=== PATIENT | female | born 1945 | race Caucasian/White ===

== ENCOUNTER 2023-12-19 13:09 | Emergency (ER) | payer OTHER, SELFPAY ==
[2023-12-19 13:19] VITALS: BP 168/86
[2023-12-19 13:35] LABS: % Basophils 1.3 % (0-2); % Eosinophils 2.5 % (0-6); % Immature Granulocytes 0.6 % (0-0.5); % Lymphocytes 21.7 % (20.5-51.1); % Monocytes 10.2 % (1.7-9.3); % Neutrophils 63.7 % (42.2-75.2); Absolute Basophils 0.1 10^3/uL (0-0.2); Absolute Eosinophils 0.2 10^3/uL (0-0.7); Absolute Lymphocytes 1.5 10^3/uL (1.2-3.4); Absolute Monocytes 0.7 10^3/uL (0.1-0.6); Absolute Neutrophils 4.3 10^3/uL (1.4-6.5); Hematocrit 39.5 % (37.0-47.0); Hemoglobin 13.5 g/dL (12.0-16.0); Mean Corp Hgb Conc. 34.2 g/dL (33.0-37.0); Mean Corpuscular Hgb 31.4 pg (27.0-31.0); Mean Corpuscular Volume 91.9 fL (81.0-99.0); Mean Platelet Volume 8.6 fL (7.4-10.4); Nucleated Red Blood Cells % 0 %; Platelet Count 251 10^3/uL (130-400); Red Cell Dist. Width 12.6 % (11.5-14.5); White Blood Cell Count 6.7 10^3/uL (4.8-10.8)
[2023-12-19 13:49] LABS: ALT (SGPT) 15 U/L (0-35); AST (SGOT) 23 U/L (14-36); Albumin 4.3 g/dl (3.5-5.0); Alkaline Phosphatase 77 U/L (38-126); Blood Urea Nitrogen 23 mg/dl (7-17); Calcium 8.9 mg/dl (8.4-10.2); Carbon Dioxide 26 mmol/L (22-30); Chloride 106 mmol/L (98-107); Glucose 98 mg/dl (70-99); Potassium 3.9 mmol/L (3.5-5.1); Sodium 137 mmol/L (135-145); Total Bilirubin 0.7 mg/dl (0.2-1.3); Total Protein 6.9 g/dl (6.3-8.2)
[2023-12-19 14:09] LABS: eGFR 46.33
--- NOTE | 2023-12-19 16:45 | ED.GENMED ---
History of Present Illness
General
Chief Complaint: Bowel Problem
Source: patient
Exam Limitations: none
Time Seen by Provider: 12/19/23 16:45
Nursing documentation reviewed up to this point in time: agreed with
Travel History
Have you had any contact with someone who has COVID-19?: No
Do you have any symptoms of coronavirus? Fever > 100 degrees, chills, cough, shortness of breath, sore throat, loss of taste or smell, muscle aches, or headache?: No
History of Present Illness
History of Present Illness:
78-year-old female with chronic pain syndrome presents complaining of abdominal pain and constipation. Pain is 'uncomfortable,' in lower mid abdomen, not severe. Has chronic low back pain and takes tramadol 50 mg 2-3 times a day, on a bowel regimen
for constipation: Lactulose 30 daily, took BID past 3 days. Docusate sodium BID and Miralax daily. She thinks she had a BM yesterday and today.
Past History
Past History
ED Past Medical History: Asthma, COPD, Renal failure (CKD) and Other
ED Past Surgical History: None
Social History
Tobacco: Smoker
Alcohol: None
Drug: None
Personal: Single
Living: alone
Family History
Family History: Other (Nonsignificant)
Review of Systems
Review of Systems
Allergies reviewed?: Yes
All Other Systems: ROS reviewed and negative except as documented in HPI and ROS
Constitutional: Denies fever
Respiratory: Denies trouble breathing
Cardiac: Denies chest pain
ABD/GI: Reports abdominal pain, nausea and constipated; Denies vomiting, diarrhea, bloody stools or black stools
: Denies dysuria, frequency, difficulty voiding or urgency
Musculoskeletal: Reports back pain (chronic); Denies edema
Skin: Reports no symptoms
Neurological: Reports no symptoms
Phy Exam
Physical Exam
Physical Exam:
GENERAL: No acute distress. A&Ox3. Frail, cachectic
CONSTITUTIONAL: Afebrile.
EYES: clear, conjunctivae normal
ENMT: moist mucus membranes, Pharynx nl
RESPIRATORY: Regular respirations, nonlabored, lungs clear.
CARDIOVASCULAR: Regular rate and rhythm, no murmurs, no rubs.
GI: Soft, nondistended, no palpable masses, mild suprapubic tenderness, normal BS
Rectal: No stool in rectal vault.
MUSCULOSKELETAL: Moves with ease. Well perfused.
SKIN: Warm, dry, pink
PSYCH: Normal mood and affect. Well kept, interactive and appropriate
NEUROLOGIC: Awake, alert and oriented. No focal neurological deficits
Course
Orders/Labs/Results
Orders:
Orders
12/19/23 13:30
Complete Blood Count/With Diff Urgent
Comprehensive Metabolic Panel Urgent
12/19/23 17:12
CT Abd/pel W Iv And Oral Contr Urgent
Comment:
Reason For Exam: no BM for 5 days, lower abd pain
Iohexol [Omnipaque] See Protocol PO NOW STA
12/19/23 17:13
0.9% Sodium Chloride 1000 ml [Nss] 1,000 ml IV BOLUS
12/19/23 21:10
Ciprofloxacin HCl [Cipro] 500 mg PO NOW STA
12/19/23 21:15
MetroNIDAZOLE [Flagyl] 500 mg PO NOW STA
Abnormal Lab Results
12/19/23
13:30
MCH 31.4 H pg
(27.0-31.0)
Absolute Monos (auto) 0.7 H 10^3/uL
(0.1-0.6)
Immature Gran % 0.6 H %
(0-0.5)
Monocytes % 10.2 H %
(1.7-9.3)
BUN 23 H mg/dl
(7-17)
Creatinine 1.2 H mg/dL
(0.6-1.0)
12/19/23 13:30
12/19/23 13:30
Vital Signs
Initial and Last Documented VS:
Initial Vital Signs
Temp Pulse Resp BP Pulse Ox
98.1 F 66 16 168/86 98
12/19/23 13:19 12/19/23 13:19 12/19/23 13:19 12/19/23 13:19 12/19/23 13:19
Last Documented Vital Signs
Temp Pulse Resp BP Pulse Ox
98.1 F 66 16 147/79 100
12/19/23 13:19 12/19/23 13:19 12/19/23 13:19 12/19/23 20:32 12/19/23 20:33
MDM/Problems Addressed
Differential Diagnosis Includes:
constipation, bowel obstruction
MDM/Problems Addressed:
78-year-old female with chronic pain syndrome presents complaining of abdominal pain and constipation. Pain is 'uncomfortable,' in lower mid abdomen, not severe. Has chronic low back pain and takes tramadol 50 mg 2-3 times a day, on a bowel regimen
for constipation: Lactulose 30 daily, took BID past 3 days. Docusate sodium BID and Miralax daily. She thinks she had a BM yesterday and today.
Afebrile, NAD
Abd soft minimally tender suprapubic area. Normal BS. Non distended
12/19/2023 1718 PM
CBC unremarkable
CMP: BUN/creat 13/12.2 she has been here in the past, Daughter April states pt has had out pt labs showing worsening kidney functions and has an appointment with Nephrology in January
12/19/2023 2109 PM
CAT scan abdomen pelvis with p.o. and IV contrast radiology for read: IMPRESSION:
1. Mild wall thickening of the sigmoid colon, which could be secondary to chronic wall hypertrophy from extensive diverticulosis or a mild infectious/inflammatory colitis.
2. Moderate colonic stool burden.
Will treat mild colitis
Prescription for Cipro and Flagyl sent to her pharmacy
Referred to GI for follow-up
Spoke with daughter April who will be here to tack picker patient, she will tack picker her antibiotics tomorrow and she will make arrangements for her to follow-up with her GI doctor at [place].
*Critical Care Note
Total Time (30-74mins, 75-104mins- exclusive of procedures): Not Applicable
ED Attending Note
-
Portions of this chart may have been created with voice recognition software.� Occasional wrong word or��sound alike� substitutions may have occurred due to the inherent limitations of voice recognition software.
Discharge Plan
Departure
Patient Disposition: Home (Routine Discharge)
Date of Disposition: 12/19/23
Time of Disposition: 21:15
Patient with high blood pressure during this ER visit?: No
Condition: Good
Discharge Problem:
Colitis
Instructions: Colitis
Prescriptions:
New
ciprofloxacin HCl [Cipro] 500 mg tablet
500 mg PO BID Qty: 14 0RF
metronidazole 500 mg tablet
500 mg PO TID Qty: 21 0RF
No Action
albuterol sulfate [Proventil HFA] 90 MCG/PUFF HFA aerosol inhaler
2 puff inhalation Q4HPRN PRN (Reason: Wheezing/cough) Qty: 1 0RF
tramadol 50 MG tablet
50 mg PO Q6HPRN PRN (Reason: pain) Qty: 12 0RF
Rx Instructions:
Last filled 02/03/23 #60 x15 day supply
docusate sodium 100 mg Capsule
100 mg PO BID Qty: 0 0RF
polyethylene glycol 3350 [HealthyLax] 17 gram Powder In Packet
17 g PO DAILY Qty: 0 0RF
sennosides [senna] 8.6 mg Tablet
17.2 mg PO HS Qty: 0 0RF
pantoprazole 40 mg Tablet,Delayed Release (Dr/Ec)
40 mg PO DAILY Qty: 30 0RF
desvenlafaxine succinate [Pristiq] 25 mg tablet extended release 24 hr
25 mg PO DAILY Qty: 1 0RF
Referrals:
Your, GI doctor [Other] - Next open appointment
Aleah Greco, [Family Provider] -
Activity Restrictions/Additional Instructions:
As we discussed, you have an inflammation in part of your bowel called colitis.
I sent a prescription to your pharmacy for Cipro and Flagyl antibiotics to start tomorrow as you were given a dose here today
Call your GI doctors office tomorrow, inform them of your diagnosis and ask when they want to see you for follow-up.
Interventions
Interventions:
*Risk Screen - Suicide Last Done: 12/19/23 17:53
*General Assessment Last Done: 12/19/23 17:53
*Neglect/Abuse Screening Last Done: 12/19/23 17:53
ED- Fall Risk Assessment Last Done: 12/19/23 17:53
*ED COVID-19 Vaccine History Last Done: 12/19/23 13:19
*Nursing Disposition Last Done: 12/19/23 21:44
HF-Olwile-Mcaompzikl Assessment Last Done: 12/19/23 17:53
Discharge Date and Time
Discharge Date/Time: 12/19/23 21:49
[2023-12-19 17:53] VITALS: BMI 17.6
[2023-12-19 17:58] VITALS: BP 126/66
[2023-12-19 18:00] VITALS: BP 121/65
[2023-12-19] MEDS: OMNIPAQUE 50 ML PO (18:06)
[2023-12-19] MEDS: NSS 1000 IV (18:06)
[2023-12-19 19:22] VITALS: BP 158/83
[2023-12-19 20:32] VITALS: BP 147/79
[2023-12-19] MEDS: FLAGYL 500 MG PO (21:40)
[2023-12-19] MEDS: CIPRO 500 MG PO (21:40)
== END 2023-12-19 21:49 | disposition home or self-care (01) ==
LOC: EMR 13:09
PROVIDERS: Student in an Organized Health Care Education/Training Program; EMERGENCY PHYSICIAN Emergency Medicine; FAMILY PHYSICIAN Family Medicine
DX: K52.9 Noninfective gastroenteritis and colitis, unspecified (principal); K59.00 Constipation, unspecified; J44.89 Other specified chronic obstructive pulmonary disease; N18.9 Chronic kidney disease, unspecified; F17.200 Nicotine dependence, unspecified, uncomplicated
CPT/HCPCS: 99284; 96360; 74177; 80053; 85025; Q9967

== ENCOUNTER 2024-10-14 01:13 | Observation (INO) | payer OTHER, SELFPAY ==
[2024-10-13 20:33] VITALS: BMI 17.1
[2024-10-13 20:34] VITALS: BP 150/74
[2024-10-13 20:40] VITALS: BP 150/74
[2024-10-13 21:00] VITALS: BP 130/72
[2024-10-13 21:01] LABS: % Basophils 0.7 % (0-2); % Eosinophils 0.6 % (0-6); % Lymphocytes 10.3 % (20.5-51.1); % Monocytes 10.1 % (1.7-9.3); % Neutrophils 77.3 % (42.2-75.2); Absolute Basophils 0.1 10^3/uL (0-0.2); Absolute Eosinophils 0.1 10^3/uL (0-0.7); Absolute Immature Granulocytes 0.1 10^3/uL (0-0.05); Absolute Neutrophils 7.8 10^3/uL (1.4-6.5); Hematocrit 36.9 % (37.0-47.0); Hemoglobin 11.9 g/dL (12.0-16.0); Mean Corp Hgb Conc. 32.2 g/dL (33.0-37.0); Mean Corpuscular Hgb 29.5 pg (27.0-31.0); Mean Corpuscular Volume 91.6 fL (81.0-99.0); Mean Platelet Volume 8.5 fL (7.4-10.4); Nucleated Red Blood Cells % 0 %; Platelet Count 268 10^3/uL (130-400); Red Blood Cell Count 4.03 10^6/uL (4.20-5.40); Red Cell Dist. Width 12.2 % (11.5-14.5); White Blood Cell Count 10.1 10^3/uL (4.8-10.8)
[2024-10-13 21:18] LABS: COVID-19 Antigen Negative (Negative)
[2024-10-13 21:22] LABS: ALT (SGPT) 11 U/L (0-35); AST (SGOT) 18 U/L (14-36); Albumin 3.8 g/dl (3.5-5.0); Alkaline Phosphatase 85 U/L (38-126); Blood Urea Nitrogen 27 mg/dl (7-17); Calcium 8.8 mg/dl (8.4-10.2); Carbon Dioxide 26 mmol/L (22-30); Chloride 102 mmol/L (98-107); Estimated Creatinine Clearance 20 ml/min; Glucose 118 mg/dl (70-99); Sodium 137 mmol/L (135-145); Total Bilirubin 0.6 mg/dl (0.2-1.3); Total Protein 6.2 g/dl (6.3-8.2); eGFR 38.27
[2024-10-13 21:28] LABS: Troponin I 0.013 ng/ml
--- NOTE | 2024-10-13 21:55 | ED.GENMED ---
History of Present Illness
General
Chief Complaint: Chest Pain
Source: patient
Exam Limitations: none
Time Seen by Provider: 10/13/24 21:22
History of Present Illness
History of Present Illness:
This is a 79 year old female that comes in with c/o chest pain and SOB. States that she has not felt good for about a week. States that she felt strange tonight when she got in bed as the muscle around the heart hurt. State that she has pain with
breathing and she feels flu like. States that she has had a fever, chest pain, SOB, nausea. Denies any chills, abd pain, vomiting, diarrhea, headache, dizziness, urinary burning.
Past History
Past History
ED Past Medical History: Asthma, COPD, Renal failure (CKD) and Other (Chronic neck and back pain, Diverticulitis, )
ED Past Surgical History: Other (cervical cyst removed)
Social History
Tobacco: Smoker
Alcohol: None
Drug: None
Personal:
Living: alone
Family History
Family History: Other (Nonsignificant)
Review of Systems
Review of Systems
All Other Systems: ROS reviewed and negative except as documented in HPI and ROS
Constitutional: Reports fever; Denies chills
EENT: Reports no symptoms
Respiratory: Reports trouble breathing; Denies cough
Cardiac: Reports chest pain
ABD/GI: Reports nausea; Denies abdominal pain, vomiting or diarrhea
: Reports no symptoms; Denies dysuria, frequency or urgency
Musculoskeletal: Reports no symptoms
Skin: Reports no symptoms
Neurological: Reports no symptoms; Denies dizzy or headache
Psychiatric: Reports no symptoms
Phy Exam
General Physical Exam
General Presentation: no apparent distress
General age: appears stated age
General Skin: warm and dry
General Habitus: elderly
General Mental: alert
General Hydration: dry mucous membranes
ENT Exam
ENT Exam: TM's normal, pharynx normal and neck supple
Eye Exam
Eye Exam: EOMI
Cardiovascular Exam
Cardiovascular Exam: regular rate/rhythm, no edema and normal peripheral pulses
Pulmonary Exam
Pulmonary Exam: no respiratory distress, no rales, no crackles, no rhonchi, no wheezing, no cough and other (discomfort with Deep breathing)
Gastrointestinal Exam
Gastrointestinal Exam: normal bowel sounds, non tender, soft, no organomegaly, no pulsatile mass and non distended
Musculoskeletal Exam
Musculoskeletal Exam: full ROM and no edema
Skin Exam
Skin Exam: normal color, warm/dry, no rash and no petechia
Psychiatric Exam
Psychiatric Exam: normal mood/affect
Scores
Heart Score for Chest Pain Patients
STEMI patient?: Not applicable
Course
Orders/Labs/Results
Orders:
Orders
10/13/24 20:36
EKG [Electrocardiogram (*1)] Urgent
Reason for Study: Tachycardia
EKG- Treatment ONCE
10/13/24 20:52
Complete Blood Count/With Diff Urgent
Comprehensive Metabolic Panel Urgent
Troponin I Urgent
10/13/24 20:57
COVID-19 Antigen Urgent
Source: Nasal Swab
Influenza A+B Rapid Molecular Urgent
EMILIANO Source: Nasal Swab
Specimen Description:
10/13/24 21:36
CR Chest - 2 Views Urgent
Comment:
Reason For Exam: fever. SOB
10/13/24 22:03
Acetaminophen [Tylenol] 1,000 mg PO NOW STA
10/13/24 22:05
Urinalysis Reflex To Culture Urgent
Date Specimen was Collected: 10/13/24
Time Specimen was Collected: 20:46
10/13/24 22:21
EKG- Treatment ONCE
10/13/24 22:24
CT Chest With Iv Contrast Urgent
Comment:
Reason For Exam: Left sided chest pain. SOB
10/14/24 00:00
Electrocardiogram (*1) Urgent
Reason for Study: Chest Pain
Other Reason for Exam: repeat with Troponin
10/14/24 00:02
Troponin I Urgent
10/14/24 00:11
Piperacillin/Tazo 3.375 Gram [Zosyn] 3.375 gram in 50 ml IV NOW
Abnormal Lab Results
10/13/24
20:52
RBC 4.03 L 10^6/uL
(4.20-5.40)
Hgb 11.9 L g/dL
(12.0-16.0)
Hct 36.9 L %
(37.0-47.0)
MCHC 32.2 L g/dL
(33.0-37.0)
Abs Immat Gran (auto) 0.1 H 10^3/uL
(0-0.05)
Absolute Neuts (auto) 7.8 H 10^3/uL
(1.4-6.5)
Absolute Lymphs (auto) 1.0 L 10^3/uL
(1.2-3.4)
Absolute Monos (auto) 1.0 H 10^3/uL
(0.1-0.6)
Immature Gran % 1.0 H %
(0-0.5)
Neutrophils % 77.3 H %
(42.2-75.2)
Lymphocytes % 10.3 L %
(20.5-51.1)
Monocytes % 10.1 H %
(1.7-9.3)
BUN 27 H mg/dl
(7-17)
Creatinine 1.4 H mg/dL
(0.6-1.0)
Glucose 118 H mg/dl
(70-99)
Total Protein 6.2 L g/dl
(6.3-8.2)
10/13/24 20:52
10/13/24 20:52
H/H slightly low. Dehydration. hyperglycemia. COVID negative. Influenza negative. Troponin 0.013, Urine negative for infection.
Vital Signs
Initial and Last Documented VS:
Initial Vital Signs
Temp Pulse Resp BP Pulse Ox
99.4 F 82 22 150/74 96
10/13/24 20:34 10/13/24 20:34 10/13/24 20:34 10/13/24 20:34 10/13/24 20:34
Last Documented Vital Signs
Temp Pulse Resp BP Pulse Ox
98.4 F 72 17 127/77 96
10/14/24 00:04 10/13/24 23:15 10/13/24 23:15 10/13/24 23:00 10/13/24 23:45
MDM/Problems Addressed
Differential Diagnosis Includes:
PNA, PE, Coronary syndrome
MDM/Problems Addressed:
This is a 79 year old female that comes in with c/o chest pain and SOB. State that she has not felt good for a week and tonight when she got in bed she felt like the muscle around her heart was hurting. States that she has pain with deep breathing.
Will check labs. COVId, Influenza and get Chest X-ray
back into see patient. Explained that she would be admitted as there is a very large mass in the left chest that will need further evaluation. Hospitalist notified.
Repeat ECG: Rate 72, NSR, Normal axis. Normal QRS, negative for ischemia.
Chronic conditions affecting care: COPD and Asthma
Acute Exacerbation and/or Progression of Chronic Illness: COPD and Asthma
*Radiology
Radiology exam reviewed: preliminary read by ED provider (Chest- Large mass left lung), radiology read reviewed (CT- night hawk- large heterogeneous enhancing necrotic mass in the left upper lobe measuring 6.9 X 7.9 X 9.6cm most concerning for
malignant neoplasm. Minor consolidative and groundglass opacity surrounding the lesion which may reflect obstructive versus compressive atelectasis, infection, or), all reviewed NAD by ED Provider (CT cont or tumoral infiltration. No pahtologically
enlarged mediastinal or hilar nodes. No suspicious osseous lesions. No appreciable signs of metastatic disease in the visualized upper abdomen (though suboptimal contrast bolus for assessment of solid organs). Prominent emphysematous changes. ) and
other (CT cont- Trace left pleural effusion. Coronary and systemic atherosclerotic calcifications. Aortic valve and mitral valve annular calcifications. )
*Pulse Oximetry
Patient hypoxic: no
*EKG
Interpreted by ED Provider?: Yes
Heart Rate: 80
Rate: normal
Rhythm: sinus
[place]: normal axis
Interval: normal interval
QRS Pattern: normal QRS
Ischemia: no ischemia
*[employer] Specialist Interpretation
Rate: normal
Heart Rate: 80
Rhythm: sinus
*Critical Care Note
Total Time (30-74mins, 75-104mins- exclusive of procedures): Not Applicable
ED Attending Note
-
Portions of this chart may have been created with voice recognition software.� Occasional wrong word or��sound alike� substitutions may have occurred due to the inherent limitations of voice recognition software.
Discharge Plan
Departure
Patient Disposition: Admit
Date of Disposition: 10/14/24
Time of Disposition: 00:10
Admit to: Med/Surg
Presentation/result/management discussed w/ accepting MD/DO: Hospitalist
Patient with high blood pressure during this ER visit?: No
Condition: Good
Covid-19: Negative COVID-19
Discharge Problem:
Left-sided chest pain, Mass of upper lobe of left lung
Prescriptions:
No Action
albuterol sulfate [Proventil HFA] 90 MCG/PUFF HFA aerosol inhaler
2 puff inhalation Q4HPRN PRN (Reason: Wheezing/cough) Qty: 1 0RF
tramadol 50 MG tablet
50 mg PO Q6HPRN PRN (Reason: pain) Qty: 12 0RF
Rx Instructions:
Last filled 3/16/23 #60 x15 day supply
docusate sodium 100 mg Capsule
100 mg PO BID Qty: 0 0RF
polyethylene glycol 3350 [HealthyLax] 17 gram Powder In Packet
17 g PO DAILY Qty: 0 0RF
sennosides [senna] 8.6 mg Tablet
17.2 mg PO HS Qty: 0 0RF
pantoprazole 40 mg Tablet,Delayed Release (Dr/Ec)
40 mg PO DAILY Qty: 30 0RF
desvenlafaxine succinate [Pristiq] 25 mg tablet extended release 24 hr
25 mg PO DAILY Qty: 1 0RF
ciprofloxacin HCl [Cipro] 500 mg tablet
500 mg PO BID Qty: 14 0RF
metronidazole 500 mg tablet
500 mg PO TID Qty: 21 0RF
Referrals:
Aleah Greco DO [Family Provider] -
Interventions
Interventions:
*Risk Screen - Suicide Last Done: 10/13/24 20:34
*General Assessment Last Done: 10/13/24 20:34
*Neglect/Abuse Screening Last Done: 10/13/24 20:34
ED- Fall Risk Assessment Last Done: 10/13/24 20:34
*ED COVID-19 Vaccine History Last Done: 10/13/24 20:34
ED- Cardiac Assessment Last Done: 10/13/24 20:44
Discharge Date and Time
Print Language: MALTESE
[2024-10-13 22:03] VITALS: BP 156/71
[2024-10-13] MEDS: TYLENOL 1000 MG PO (22:05)
[2024-10-13 22:17] LABS: Urine Albumin Negative (Neg - Trace); Urine Bilirubin Negative (Negative); Urine Character Slightly Cloudy (Clear); Urine Color Straw; Urine Glucose Negative (Negative); Urine Ketone Negative (Negative); Urine Leukocyte Negative (Negative); Urine Nitrite Negative (Negative); Urine Occult Blood Negative (Negative); Urine Urobilinogen Negative (Neg - 1+); Urine pH 6.5 (5.0-9.0)
[2024-10-13 23:00] VITALS: BP 127/77
[2024-10-14] VITALS (7 sets, daily range): BP systolic 117–152; BP diastolic 65–78; PULSE 69; O2SAT 98; BMI 15.7
[2024-10-14] MEDS: ZOSYN 50 IV (00:16)
[2024-10-14 00:34] LABS: Troponin I < 0.012 ng/ml
--- NOTE | 2024-10-14 00:43 | HPS.HSE ---
Family Physician
-
Family Physician: Aleah Greco
Chief Complaint
-
Left-sided chest pain
History of Present Illness
This is a 79-year-old female was past medical history of GERD, chronic tobacco use who presents to the emergency department with multiple complaints but mostly left-sided chest pain that she felt over the last 2 days.
Patient reports that since the last 2 days she has been having sharp to moderate left-sided chest pain that is not radiating. She denies any radiation to the neck or shoulders jaws or arms. She denies any palpitations lightheadedness or dizziness.
Is not associated with deep inspiration or positional changes. She was concerned that the pain was around her heart so she did come to the emergency department today. She denies any significant shortness of breath. She has a chronic cough that
has not changed. She reports fatigue and not feeling well for about a year. She is unable to determine whether she has had any significant weight loss. She denies any prior or history of malignancy.
In the ED the patient was afebrile, blood pressure was stable at 127/77 with a pulse of 77. Oxygen saturation was normal on room air. ECG showed normal sinus rhythm without any acute ischemia rate of 72. Troponin negative. CBC was within normal
limits. Chemistry shows no significant abnormalities. BUN/creatinine were normal.
CT chest - Large heterogeneous enhancing extra-axial mass in the left upper lobe measuring 6.9 x 7.9 x 9.6 with minor consolidative and groundglass opacity surrounding the lesion which may affect obstructive versus compressive atelectasis or
infection.
Medical History
Past Medical History
Past Medical History: Reports GERD
Past Surgical History: Reports None
Social History
Tobacco: Smoker
Alcohol: Former
Drug: None
Personal: Single
Living: Alone
Employment: Retired
Family History
Family History: Not pertinent
Allergies / Home Medications
Allergies reflects when Allergies were last updated in [employer].
Home Medications with original date entered in [employer]
Allergy/Medication List:
Allergies
Allergy/AdvReac Type Severity Reaction Status Date / Time
No Known Drug Allergies Allergy Unknown Verified 10/13/24 20:47
seasonal Allergy Unknown Uncoded 10/13/24 20:47
Home Medications
albuterol sulfate 90 mcg/actuation aerosol inhaler (Proventil HFA) 2 puff inhalation Q4HPRN PRN Wheezing/cough ##1 09/11/15
tramadol 50 mg tablet 50 mg PO Q6HPRN PRN pain #12 tabs 06/25/20
docusate sodium 100 mg capsule 100 mg PO BID #0 caps 02/28/23
pantoprazole 40 mg tablet,delayed release 40 mg PO DAILY #30 tabs 02/28/23
polyethylene glycol 3350 17 gram oral powder packet (HealthyLax) 17 g PO DAILY #0 ea 02/28/23
sennosides 8.6 mg tablet (senna) 17.2 mg (2 x 8.6 mg) PO HS #0 tabs 02/28/23
Review of Systems
-
History Source: Patient
Constitutional: Reports Fatigue
EENT: Reports No Symptoms
Respiratory: Reports Cough
Cardiac: Reports Chest Pain
Abdomen/GI: Reports No Symptoms
: Reports No Symptoms
Musculoskeletal: Reports No Symptoms
Skin: Reports No Symptoms
Neurological: Reports No Symptoms
Endocrine: Reports No Symptoms
Hematologic/Lymphatic: Reports No Symptoms
Psych: Reports No Symptoms
Physical Exam
Vital Signs
Vital Signs
Temp Pulse Resp BP Pulse Ox
98.4 F 73 16 118/71 94
10/14/24 00:04 10/14/24 00:15 10/14/24 00:15 10/14/24 00:00 10/14/24 00:15
Physical Exam
General: No Apparent Distress, Comfortable and Cachectic
HEENT: NormoCephalic, Anicteric, Moist mucous membranes and Atraumatic
Respiratory: Clear
Cardiac: S1/S2 and Regular Rhythm
GI: Soft, Non Tender, Non Distended and Normal Bowel Sounds
Rectal: Deferred by Provider
Genito-urinary: Deferred by me
Musculoskeletal: No Clubbing, No Cyanosis and No Edema
Skin: Warm
Neuro: AO x 3
Hematologic/Lymphatic: No Lymphadenopathy
Psych: Calm
Laboratory Results
-
10/13/24 20:52
10/13/24 20:52
Laboratory Results
Total Bilirubin 0.6 mg/dl (0.2-1.3) 10/13/24 20:52
AST 18 U/L (14-36) 10/13/24 20:52
ALT 11 U/L (0-35) 10/13/24 20:52
Alkaline Phosphatase 85 U/L (38-126) 10/13/24 20:52
Troponin I < 0.012 ng/ml 10/14/24 00:02
Data Reviewed
-
CT Scan: Report Reviewed by me
Medical Tests (Nuc Med, Echo, EKG etc): Image Personally Visualized and interpreted
Lab Data: Labs Reviewed by me
Old Records: Reviewed
Impression/Plan
-
IMPRESSION:
79-year-old with chest pain found to have a large left upper lobe lung mass.
PLAN:
1. Lung Mass - Current and long-standing tobacco use. Possibly had lung nodules found about a year ago but no follow up. Chronic cough but no signs of infection. Hemodynamically stable and in no acute distress.
- admit to med/surg
- hold abx, check procal in am
- antitussives and cough suppression
- duonebs prn
- pulmonary consultation
- oncology consultation
DVT PPX - lovenox sq
Code status - Full Code
[2024-10-14 06:35] LABS: Hematocrit 36.5 % (37.0-47.0); Hemoglobin 12.3 g/dL (12.0-16.0); Mean Corp Hgb Conc. 33.7 g/dL (33.0-37.0); Mean Corpuscular Hgb 30.8 pg (27.0-31.0); Mean Corpuscular Volume 91.3 fL (81.0-99.0); Mean Platelet Volume 8.7 fL (7.4-10.4); Platelet Count 263 10^3/uL (130-400); Red Cell Dist. Width 12.1 % (11.5-14.5); White Blood Cell Count 6.6 10^3/uL (4.8-10.8)
[2024-10-14 07:12] LABS: Procalcitonin 0.27 ng/ml (0.0-0.25)
[2024-10-14 07:16] LABS: Blood Urea Nitrogen 26 mg/dl (7-17); Calcium 8.9 mg/dl (8.4-10.2); Carbon Dioxide 25 mmol/L (22-30); Chloride 104 mmol/L (98-107); Estimated Creatinine Clearance 18 ml/min; Glucose 106 mg/dl (70-99); Potassium 4.4 mmol/L (3.5-5.1); Sodium 138 mmol/L (135-145); eGFR 35.23
[2024-10-14] MEDS: PROTONIX 40 MG PO (08:14)
[2024-10-14] MEDS: COLACE 100 MG PO ×2 (08:14→20:08)
[2024-10-14] MEDS: MIRALAX 17 GRAMS PO (08:18)
--- NOTE | 2024-10-14 11:14 | CHAP ---
Extended visit with Manju and her daughter, April. Manju is thoughtful and introspective, looking back over her life, wanting to 'be at peace when I .' She was forgetful at times. The spiritual life is important to her, and she welcomed
prayer. Emotional and spiritual support provided.
--- NOTE | 2024-10-14 11:37 | W.PN.HOSP.TC ---
Addendum entered and electronically signed by Sacha Yang DO 10/14/24 11:49:
The patient's power of ip attorney is her daughter Lurdes Lagunas, she can be reached at [phone]
Original Note:
Today's Communication/Plan
-
Hospice consult
Comfort regimen
Assessment / Plan
Assessment / Plan
#Lung mass, left upper lobe
-Highly suspicious for cancer due to excessive smoking history and appearance
-I spoke with the patient's daughter who is the POA, understands she would not tolerate chemo and would prefer comfort approach
-Benefits of biopsy at this point are minimal if patient would not pursue treatment
-Hospice team consulted
#Comfort regimen
-Will start oxycodone for pain, DC tramadol
-Continue with Zofran, start Compazine as needed for nausea
-Avoid Reglan and tramadol combination
-Bowel regimen with senna/miralax/bisacodyl
-Ensure with meals
#GERD
-Remains on home PPI
#Current tobacco user
Anticipated Discharge: 24 - 48 hours
Subjective/Interval History
-
Date of Service: October 14, 2024
Seen and examined at the bedside. No acute events reported overnight. AFVSS this morning.
She still has a cough, states her breathing is a little bit better. Denies chest pain, fevers or chills, lightheadedness, wheezing, paresthesias or weakness, bleeding or bruising.
The patient's daughter Lurdes, who is the patient's POA, states that her mother has dementia and is roughly 80 pounds. Continues to smoke to this day. Family would like to pursue hospice/palliative approach
Objective Data
-
Labs:
Laboratory Results
10/14/24
06:27
WBC 6.6
Hgb 12.3
Hct 36.5 L
Plt Count 263
Sodium 138
Potassium 4.4
Chloride 104
Carbon Dioxide 25
BUN 26 H
Creatinine 1.5 H
Glucose 106 H
Calcium 8.9
Vital Signs:
Vital Signs
Temp Pulse Resp BP Pulse Ox
98.6 F 70 18 152/78 98
10/14/24 07:05 10/14/24 07:05 10/14/24 07:05 10/14/24 07:05 10/14/24 08:55
Review of Systems
-
History Source: Patient and Family
All other systems: Reviewed and negative
Physical Exam
-
General: No Apparent Distress, Comfortable and Cachectic
HEENT: Normocephalic, Atraumatic and Moist Mucous Membranes
Respiratory: Rhonchi and Non Labored Respirations; Negative Accessory Resp Muscle Use
Cardiac: Regular Rhythm and S1/S2; Negative Murmur, Rub or Gallop
GI: Soft, Nontender, Nondistended and Normal Bowel Sounds
Musculoskeletal: No Clubbing, No Cyanosis and No Edema
Skin: Warm and Dry; Negative Rash
Neuro: Awake, Alert, Oriented and Nonfocal/Grossly Intact
Psych: Calm
Data Reviewed
-
CT Scan: Report Reviewed by me and Discussed with Family
Labs: Labs Reviewed by me, Discussed with Patient and Discussed with Family
--- NOTE | 2024-10-14 12:30 | CM ---
Addendum entered by Dalia Hardy 10/14/24 12:34:
CM received consult for Hospice, patients daughter no longer present, call placed to daughter. Daughter agreeable to Hospice consult and requesting to speak to Hospice about options. TT to consumer services consultant hospice nurse who will call daughter.
Plan; family speaking to Hospice regarding options.
Original Note:
Patient seen bedside with daughter, [place], initial assessment completed. Per daughter, patient resides in a single story home, [facility], no steps to enter. Patient has a rollator which she typically does not use, primarily uses cane.
Patient has 24 hour caregivers at home through waiver program, has had VN in the past, unsure agency, denies SNF. Patient PCP Aleah Greco, pharmacy [facility], confirms prescription coverage. Patient denies insecurities at home. GOPI reviewed,
refused to sign, placed in chart, provided with copy. CM will continue to follow for all discharge planning needs.
Plan; home with caregiver services.
--- NOTE | 2024-10-14 12:59 | HOSPNOTE ---
Referral received. Called and spoke to patients daughter. Reviewed hospice and the philosophy. She is not certain about the route she wishes to take at this time. She would like to speak to PCP as well as the patient. I also reviewed palliative care
as well and she was aware of that service also. I reviewed we will follow up again with her tomorrow once she has had time to talk to PCP and patient. More information to come. CM updated.
[2024-10-14] MEDS: ROXICODONE 5 MG PO (13:25)
--- NOTE | 2024-10-14 13:50 | CON.PUL ---
Consultation
Consultation Request
Date/Time Consultation Requested: 10/14/2024-8 AM
Date/Time Consultation Performed: 10/14/2024-10 AM
Requesting Provider: Hospitalist
Performing Provider: Dr. Patel
Reason for Consultation: Lung mass
Medical History
-
Chief Complaint: Lung mass
History of Present Illness:
79-year-old female with underlying dementia, tobacco addiction who continues to smoke, reflux presented with some left-sided chest pains and CT chest revealed large mass-pulmonary consulted for lung mass 10/14/2024. The patient has chronic dyspnea
on exertion but denies any shortness of breath at rest, has minimal left-sided chest pain now, no chest congestion, productive cough, hemoptysis, and has anorexia with 15 pound unintentional weight loss over the last 1 year. She denies any
abdominal pain, nausea, weakness or lower extremity edema. Daughter was present and tells me the patient has underlying dementia and has care at home. She also has a nurse orthopaedic through the [employer] [facility].
Past Medical History
Past Medical History: None (Cigarette smoker. COPD-on Trelegy/albuterol, not oxygen-Dr. Hamzah Brennan. Former alcohol use disorder.)
Social History
Tobacco: Smoker ([id number])
Alcohol: Former
Drug: None
Personal: Single
Living: Alone (Has 13/06 care at home)
Occupational Exposures: No known asbestos exposure
Environmental Exposures: No known tuberculosis exposure
Family History
Family History: Reviewed & Not Pertinent
Allergies / Home Medications
Allergies
Allergy/AdvReac Type Severity Reaction Status Date / Time
No Known Drug Allergies Allergy Unknown Verified 10/13/24 20:47
seasonal Allergy Unknown Uncoded 10/13/24 20:47
Home Medications
�Medication �Instructions �Recorded �Confirmed �Last Taken �Type
albuterol sulfate 90 mcg/actuation 2 puff inhalation Q4HPRN PRN 09/11/15 10/14/24 Unknown Rx
aerosol inhaler (Proventil HFA) Wheezing/cough ##1
tramadol 50 mg tablet 50 mg PO Q6HPRN PRN pain #12 tabs 06/25/20 10/14/24 Unknown Rx
docusate sodium 100 mg capsule 100 mg PO BID #0 caps 02/28/23 10/14/24 Unknown Rx
pantoprazole 40 mg tablet,delayed 40 mg PO DAILY #30 tabs 02/28/23 10/14/24 Unknown Rx
release
polyethylene glycol 3350 17 gram 17 g PO DAILY #0 ea 02/28/23 10/14/24 Unknown Rx
oral powder packet (HealthyLax)
sennosides 8.6 mg tablet (senna) 17.2 mg (2 x 8.6 mg) PO HS #0 tabs 02/28/23 10/14/24 Unknown Rx
Review of Systems
-
Unable to Obtain full review of systems at this time due to: Other (Per HPI)
Vitals / Labs / Diagnostic Testing
Vital Signs
Temp Pulse Resp BP Pulse Ox
98.6 F 70 18 152/78 98
10/14/24 07:05 10/14/24 07:05 10/14/24 07:05 10/14/24 07:05 10/14/24 08:55
Lab Data
10/14/24 06:27
10/14/24 06:27
Microbiology
10/13/24 20:57 Nasal Swab Influenza Types A & B (SIMRAN) - Final
Negative for Influenza A & B, NAAT
Negative results must be combined with clinical observations
and patient history.
Nucleic Acid Amplification test (NAAT)performed on the
[employer] platform.
Diagnostic Testing:
Physical Exam
-
Exam:
Well-nourished and well-developed in no apparent distress
HEENT-atraumatic, normocephalic, temporal wasting, cachexia
Neck-supple, no JVD, no bruit
Heart-regular rate and rhythm, mild systolic murmur
Chest diminished breath sounds, prolonged expiratory time, mild kyphoscoliosis, no wheezes or crackles
Back without tenderness
Abdomen-soft, nontender, nondistended, no hepatosplenomegaly
Extremities-no cyanosis, clubbing, edema and good peripheral pulses
Integument-intact, no rashes, lesions or ecchymosis
Neurology-alert and oriented, nonfocal motor and sensory exam
Assessment
-
79-year-old female with underlying dementia, tobacco addiction who continues to smoke, reflux presented with some left-sided chest pains and CT chest revealed large mass-pulmonary consulted for lung mass 10/14/2024.
Left upper lobe lung mass-highly suspicious for primary lung cancer
Cachexia and unintentional 15 pound weight loss
Protein calorie malnutrition
Dementia
EDIE
Mild hyperglycemia
Conditions present prior to admission:
Cigarette smoker.
COPD-on Trelegy/albuterol, not oxygen-Dr. Hamzah Brennan.
Former alcohol use disorder.
Plan
Radiographs were reviewed with patient as well as daughter who was present
Supplemental oxygen as needed
Outpatient Trelegy
Nebulizers as needed
Observe off antibiotics
Diagnostic possibilities including probable lung cancer was reviewed with patient and daughter-approaches to diagnostics and potential therapeutics were reviewed with patient and daughter
They are leaning towards comfort care and no diagnostics as therapeutics would not be desired
Daughter reports underlying dementia, steady decline, chronic cachexia, unintentional weight loss and overall poor quality of life
IV fluids
Monitor renal function
Nutrition
DVT prophylaxis
Reviewed with patient and daughter-they would not like any diagnostics at this point and would like to follow-up in the outpatient setting with their outpatient nurse orthopaedic-Dr. Hamzah Brennan
Consider comfort care/hospice
Diagnostic data:
Chest x-ray 10/13/2024-large left lung mass
CT chest 10/13/2024-moderate to severe centrilobular emphysema, large heterogeneously enhancing necrotic left upper lobe mass approximately 6.9 x 7.[address] chest 06/19/2018-too many to count subcentimeter irregular pulmonary nodules stable over 3 weeks, baseline severe emphysema, no bronchiectasis
CT chest abdomen and pelvis 10/02/2018-severe bilateral centrilobular emphysema, large number of small subcentimeter groundglass and spiculated pulmonary nodules in both lungs none of these nodules have enlarged, repeat CT chest in [address] abdomen and pelvis 12/19/2023-mild wall thickening of the sigmoid colon, moderate colonic stool burden, emphysema and mild chronic subpleural reticulations in the lung bases
Data Reviewed
-
EKG: Report reviewed by me
Radiology: Image personally visualized and interpreted and Report reviewed by me
CT Scan: Image personally visualized and interpreted and Report reviewed by me
Medical Tests (Nuc Med, Echo etc): Report reviewed by me
Labs: Labs reviewed by me
Old Records: Reviewed
Total Time Spent with Patient (in minutes): 65
[2024-10-14] MEDS: NICODERM TRANSDERMAL 14 MG TRANSDERM (15:18)
[2024-10-14] MEDS: TYLENOL 650 MG PO (17:46)
[2024-10-14] MEDS: SENOKOT 17.2 MG PO (21:36)
[2024-10-15] MEDS: ROBITUSSIN AC 5 ML PO (06:21)
[2024-10-15 07:06] VITALS: BP 134/91
[2024-10-15 10:03] VITALS: BMI 15.7
[2024-10-15] MEDS: SENOKOT 8.6 MG PO (11:05)
[2024-10-15] MEDS: PROTONIX 40 MG PO (11:06)
[2024-10-15] MEDS: COLACE 100 MG PO ×2 (11:07→20:12)
[2024-10-15] MEDS: MIRALAX 17 GRAMS PO (11:09)
[2024-10-15] MEDS: NICODERM TRANSDERMAL 14 MG TRANSDERM (11:09)
[2024-10-15] MEDS: ZOFRAN 4 MG IV (11:13)
[2024-10-15 11:59] VITALS: O2SAT 95
--- NOTE | 2024-10-15 12:00 | HOSPNOTE ---
Spoke with daughter and no decisions about hospice care has been decided. The daughter will be in this evening and will discuss a plan with the patient and will let me know tomorrow what the decision is. Patient at this time remains a full code.
More information to come.
--- NOTE | 2024-10-15 12:07 | W.PN.PUL3 ---
Today's Communication / Plan
-
Patient to follow-up with primary psychiatric orderly Dr. Brennan
No additional recommendation from our perspective, family declined any biopsies at this point.
Assessment
-
79-year-old female with underlying dementia, tobacco addiction who continues to smoke, reflux presented with some left-sided chest pains and CT chest revealed large mass-pulmonary consulted for lung mass 10/14/2024.
Left upper lobe lung mass-highly suspicious for primary lung cancer
Cachexia and unintentional 15 pound weight loss
Protein calorie malnutrition
Dementia
EDIE
Mild hyperglycemia
Conditions present prior to admission:
Cigarette smoker.
COPD-on Trelegy/albuterol, not oxygen-Dr. Hamzah Brennan.
Former alcohol use disorder.
Plan
Respiratory status relatively stable from overnight.
No evidence for infection at this point.
Diagnostic possibilities including probable lung cancer was reviewed with patient and daughter-approaches to diagnostics and potential therapeutics were reviewed with patient and daughter
They are leaning towards comfort care and no diagnostics as therapeutics would not be desired
Daughter reports underlying dementia, steady decline, chronic cachexia, unintentional weight loss and overall poor quality of life
DVT prophylaxis
Dr. Patel reviewed with patient and daughter-they would not like any diagnostics at this point and would like to follow-up in the outpatient setting with their outpatient psychiatric orderly-Dr. Hamzah Brennan
Consider comfort care/hospice
-
No additional recommendation from the pulmonary perspective.
At this point I will sign off.
Please call with question.
Diagnostic data:
Chest x-ray 10/13/2024-large left lung mass
CT chest 10/13/2024-moderate to severe centrilobular emphysema, large heterogeneously enhancing necrotic left upper lobe mass approximately 6.9 x 7.[address] chest 06/19/2018-too many to count subcentimeter irregular pulmonary nodules stable over 3 weeks, baseline severe emphysema, no bronchiectasis
CT chest abdomen and pelvis 10/02/2018-severe bilateral centrilobular emphysema, large number of small subcentimeter groundglass and spiculated pulmonary nodules in both lungs none of these nodules have enlarged, repeat CT chest in [address] abdomen and pelvis 12/19/2023-mild wall thickening of the sigmoid colon, moderate colonic stool burden, emphysema and mild chronic subpleural reticulations in the lung bases
Subjective Data
-
Date of Service:
Date of Service: October 15, 2024
Chief Complaint: Pulmonary Follow Up (Lung mass)
Subjective:
No overnight pulmonary events
No pulmonary symptoms at this point
Review of Systems
General: Fever (n)
Objective Data
Data Reviewed
Vital Signs / I&O / Oxygen:
Vital Signs
Temp Pulse Resp BP Pulse Ox
98.7 F 71 16 134/91 97
10/15/24 07:06 10/15/24 07:06 10/15/24 07:06 10/15/24 07:06 10/15/24 07:06
Intake and Output
10/14/24 10/15/24 10/16/24
06:59 06:59 06:59
Intake Total 600 / 600
Balance 600 / 600
SaO2 97
Physical Exam
General: Comfortable
HEENT: Normocephalic
Cardiovascular: S1-S2
Respiratory: Non-Labored Respirations
GI: Soft and Non Distended
Neurology: Awake
Skin: Warm
Labs/Micro/Reports
Lab Data
10/14/24 06:27
10/14/24 06:27
Microbiology
10/13/24 20:57 Nasal Swab Influenza Types A & B (SIMRAN) - Final
Negative for Influenza A & B, NAAT
Negative results must be combined with clinical observations
and patient history.
Nucleic Acid Amplification test (NAAT)performed on the
[employer] platform.
[2024-10-15] MEDS: COMPAZINE 5 MG IV (13:32)
--- NOTE | 2024-10-15 13:58 | CM ---
Addendum entered by Rebecca Ayala 10/15/24 16:50:
regional account manager spoke with patient and daughter and they do want to proceed with hospice, message to to [facility].
Original Note:
Chart reviewed and case planner met with patient, patient is still under OBS, NGUYỄN letter given on admission. [facility] reached out to family and spoke with daughter, waiting on final decision.
Plan; Home with family when stable.
[2024-10-15 15:00] VITALS: BP 161/94
--- NOTE | 2024-10-15 15:52 | W.PN.HOSP.TC ---
Addendum entered and electronically signed by Bella Armendariz MD 10/15/24 16:13:
Spoke to daughter . She is going to talk to mom and make final decision regarding hospice. Care at home therefore family wants her to return home. I am hoping that hospice can make arrangements for tomorrow and she can go home tomorrow as long as
she is able to. Patient does not have a hospital bed at home.
Original Note:
Today's Communication/Plan
-
Await Family decisoon re Hospice
Assessment / Plan
Assessment / Plan
79-year-old with left-sided chest pain
CVS: S1-S2 normal
Chest: few rales
Abdomen: Soft, NT
Extremities: No edema
Cachectic
#Left upper lobe lung mass-highly suspicious for primary lung cancer
# Acute kidney injury-
Urine analysis unremarkable.
Suspect CKD also. Creatinine was 1.2 in November 2023
Contrast-induced nephropathy possible. IV fluids
# Emphysema/COPD-on Trelegy and albuterol
# 15 pound weight loss
# Protein calorie malnutrition at least moderate
# Atherosclerosis
# Diverticulosis
# Chronic pancreatitis
# Dementia
# Active smoker
# Former alcohol use disorder
# DVT prophylaxis-Lovenox
# Full code
D/W RN
Hospice discussion with the patient's daughter noted. I called and left a message for daughter.
Anticipated Discharge: Within 24 hours
Subjective/Interval History
-
Date of Service: October 15, 2024
Objective Data
-
Vital Signs:
Vital Signs
Temp Pulse Resp BP Pulse Ox
98.7 F 71 16 134/91 97
10/15/24 07:06 10/15/24 07:06 10/15/24 07:06 10/15/24 07:06 10/15/24 07:06
I&O
10/14/24 10/15/24 10/16/24
06:59 06:59 06:59
Intake Total 600 / 600
Balance 600 / 600
[2024-10-15] MEDS: ROXICODONE 5 MG PO ×2 (17:32→22:18)
[2024-10-15] MEDS: NSS 1000 IV (17:39)
[2024-10-15 18:56] LABS: Hepatitis C Antibody Negative (Negative)
[2024-10-15] MEDS: SENOKOT 17.2 MG PO (22:10)
[2024-10-15 23:40] VITALS: BP 146/86
--- NOTE | 2024-10-16 06:01 | W.PN.HOSP.TC ---
Today's Communication/Plan
-
discharge
Assessment / Plan
Assessment / Plan
Physical Exam
General: Comfortable though Cachectic appearance
HEENT: Normocephalic
Cardiovascular: S1-S2 regular rate ryhthm
Respiratory: Non-Labored Respirations. some conversational dyspnea noted, otherwise clear to auscultation
GI: Soft and Non Distended
Neurology: Awake alert conversant coherent
Skin: Warm
79F with left-sided chest pain found to have Left upper lobe lung mass concerning for malignancy.
#Left upper lobe lung mass-highly suspicious for primary lung cancer
Pulm eval appreciated
Per Pulm discussion with patient and patient's daughter POA regarding potential diagnostic and therapeutic approaches, ultimately patient and daughter opted for comfort measures.
Noted overall poor quality of life underlying dementia, steady decline, chronic cachexia, unintentional weight loss
# Acute kidney injury-
Urine analysis unremarkable.
Suspect CKD also. Creatinine was 1.2 in November 2023
Contrast-induced nephropathy possible. IV fluids
Cr however remains elevated, suspect CKD 3
# Emphysema/COPD-on Trelegy and albuterol
# 15 pound weight loss
# Protein calorie malnutrition at least moderate
# Atherosclerosis
# Diverticulosis
# Chronic pancreatitis
# Dementia
# Active smoker
# Former alcohol use disorder
# DVT prophylaxis-Lovenox
# Full code switched to DNR per patient and patient's POA daughter April's request
Hospice eval appreciated, patient and patient's POA opting for home hospice, patient to be discharged today.
Total Time Preparing Discharge __40 minutes including examination of the patient, summary of the hospital stay, instructions for continuing care to all relevant caregivers; and preparation of discharge records, prescriptions, and referral
forms if necessary.
Anticipated Discharge: Today
Subjective/Interval History
-
Date of Service: October 16, 2024
Seen and examined at bedside in no acute distress sitting up comfortably in chair. Some conversational dyspnea noted.
Objective Data
-
Vital Signs:
Vital Signs
Temp Pulse Resp BP Pulse Ox
98.3 F 78 16 146/86 96
10/15/24 23:40 10/15/24 23:40 10/15/24 23:40 10/15/24 23:40 10/15/24 23:40
I&O
10/14/24 10/15/24 10/16/24
06:59 06:59 06:59
Intake Total 600 / 600
Balance 600 / 600
[2024-10-16 07:00] VITALS: BP 154/74
[2024-10-16] MEDS: MIRALAX 17 GRAMS PO (08:00)
[2024-10-16] MEDS: NICODERM TRANSDERMAL 14 MG TRANSDERM (08:00)
[2024-10-16] MEDS: COLACE 100 MG PO (08:00)
[2024-10-16] MEDS: PROTONIX 40 MG PO (08:01)
--- NOTE | 2024-10-16 08:55 | HOSPNOTE ---
Spoke with daughter at length this am, the family will be picking up patient today at 4-4:30 this afternoon. No equipment is needed at this time. The daughter is in agreement with plan and we will sign onto hospice services. Patient is a DNR and
attending made aware to change code status. Patient has [address]. CM updated with plan.
--- NOTE | 2024-10-16 11:48 | CM ---
manager law received a call from [facility] that plan is for family to take patient home today with [facility], daughter to transport patient to home, between 4-4:30pm, per patient's daughter she will have caregivers in place for
patient.
Plan; Home today with [facility].
--- NOTE | 2024-10-16 15:42 | W.DCSUMMARY ---
Discharge Summary
Discharge Data
Date of Admission: 10/14/24
Date of Discharge: 10/16/24
-
Pending Results: No
Hospital Course
79F with left-sided chest pain found to have Left upper lobe lung mass-highly suspicious for primary lung cancer. Pulm eval appreciated. Per Pulm discussion with patient and patient's daughter POA regarding potential diagnostic and therapeutic
approaches, ultimately patient and daughter opted for comfort measures. Noted overall poor quality of life underlying dementia, steady decline, chronic cachexia, unintentional weight loss. Possible mild Acute kidney injury- Urine analysis
unremarkable.
Creatinine was 1.2 in November 2023. Contrast-induced nephropathy possible. Treated with IV fluids, Cr however remains elevated, suspected CKD 3. Hospice eval appreciated, patient and patient's POA opting for home hospice. Relatively stable,
patient was subsequently discharged to home hospice.
Discharge Plan
-
Patient Disposition: Home with Hospice
Discharge Diagnosis/Procedures: Left upper lobe lung mass-highly suspicious for primary lung cancer
Suspected Chronic Kidney Disease stage III
Emphysema/COPD
Cachexia
Moderate Protein calorie malnutrition
Atherosclerosis
Diverticulosis
Chronic pancreatitis
Dementia
Active smoker
Former alcohol use disorder
Condition: Fair
Diet: Regular
Activity: As tolerated
Driving Restrictions: No driving
Bathing Restrictions: None
Activity Restrictions/Additional Instructions:
Please follow up with hospice on discharge.
Oxycodone has been prescribed as needed for pain and zofran has been prescribed as needed for nausea.
Please take medications as prescribed/recommended and follow up with hospice and/or other healthcare provider involved in your care for refills and/or further adjustment to your medication regimen as necessary.
Referrals:
Aleah Greco, DO [Family Provider] - in one week
Prescriptions:
New
oxycodone 5 mg Tablet
5 mg PO BIDPRN PRN (Reason: moderate severe pain) 5 Days Qty: 10 0RF
ondansetron 4 mg tablet,disintegrating
4 mg PO Q8H PRN (Reason: nausea and vomiting) Qty: 7 0RF
Continued
albuterol sulfate [Proventil HFA] 90 MCG/PUFF HFA aerosol inhaler
2 puff inhalation Q4HPRN PRN (Reason: Wheezing/cough) Qty: 1 0RF
docusate sodium 100 mg Capsule
100 mg PO BID Qty: 0 0RF
polyethylene glycol 3350 [HealthyLax] 17 gram Powder In Packet
17 g PO DAILY Qty: 0 0RF
sennosides [senna] 8.6 mg Tablet
17.2 mg PO HS Qty: 0 0RF
pantoprazole 40 mg Tablet,Delayed Release (Dr/Ec)
40 mg PO DAILY Qty: 30 0RF
Discontinued
tramadol 50 MG tablet
50 mg PO Q6HPRN PRN (Reason: pain) Qty: 12 0RF
Rx Instructions:
Last filled 02/03/23 #60 x15 day supply
Discharge Orders:
Discharge Patient (As Directed); Ordered 10/16/24
Ordered By: Cherie Davis
Discharge Date and Time
Discharge Date/Time: 10/16/24 16:38
Print Language: NEPALI
[2024-10-16 16:20] VITALS: BP 163/86
== END 2024-10-16 16:38 | disposition hospice, home (50) ==
LOC: 4 WEST ACU 01:13
PROVIDERS: Clinical Nurse Specialist Family Health; ADMITTING PHYSICIAN Internal Medicine; ATTENDING PHYSICIAN Internal Medicine; CONSULT PHYSICIAN Internal Medicine Critical Care Medicine; EMERGENCY PHYSICIAN Emergency Medicine; FAMILY PHYSICIAN Family Medicine
DX: R91.8 Other nonspecific abnormal finding of lung field (principal); R07.89 Other chest pain; R06.02 Shortness of breath; J43.9 Emphysema, unspecified; G89.29 Other chronic pain; M54.2 Cervicalgia; M54.9 Dorsalgia, unspecified; R00.0 Tachycardia, unspecified; R50.9 Fever, unspecified; E86.0 Dehydration; E44.0 Moderate protein-calorie malnutrition; N18.9 Chronic kidney disease, unspecified; K86.1 Other chronic pancreatitis; I70.90 Unspecified atherosclerosis; K57.90 Diverticulosis of intestine, part unspecified, without perforation or abscess without bleeding; R73.9 Hyperglycemia, unspecified; K21.9 Gastro-esophageal reflux disease without esophagitis; F17.210 Nicotine dependence, cigarettes, uncomplicated; F03.90 Unspecified dementia, unspecified severity, without behavioral disturbance, psychotic disturbance, mood disturbance, and anxiety; N17.9 Acute kidney failure, unspecified; F10.11 Alcohol abuse, in remission; R63.4 Abnormal weight loss; Z68.1 Body mass index [BMI] 19.9 or less, adult; Z66 Do not resuscitate; Z11.52 Encounter for screening for COVID-19; Z60.2 Problems related to living alone
CPT/HCPCS: 71046; 71260; 80048; 80053; 81003; 84145; 84484; 85025; 85027; 86803; 87502; 87811; 93005; 96365; 97116; 97162; 97167; 97530; 99285; G0378; Q9967